=== PATIENT | male | born 1980 | race Hispanic/Latino ===

== ENCOUNTER 2018-10-18 21:22 | Emergency (ER) | payer OTHER ==
[2018-10-18 21:53] VITALS: RESP 18; TEMP 98.3
--- NOTE | 2018-10-18 22:47 | ED PDOC ---
HPI: Hypertension/Hypotension Time Seen by Provider: 10/18/18 22:45 Chief Complaint (Nursing): High Blood Pressure Chief Complaint (Provider): ELEVATED BP History Per: Patient (38 Y/O MALE HERE ANXIOUS ABOUT ELEVATED BLOOD PRESSURE NOTED ONGOING X 2 WEEKS. PATIENT HAS BEEN CHECKING BP INTERMITTENTLY. HAS HAD A LOT OF ANXIETY LATELY TO NEW JOB AND IN FAMILY.) Past Medical History Reviewed: Historical Data, Nursing Documentation, Vital Signs Vital Signs: Last Vital Signs Temp 98.3 F 10/18/18 21:47 Pulse 84 10/18/18 21:47 Resp 18 10/18/18 21:47 BP 160/99 H 10/18/18 21:47 Pulse Ox 99 10/18/18 21:47 - Medical History PMH: HTN (not medicated) - Family History Family History: States: No Known Family Hx - Allergies Allergies/Adverse Reactions: Allergies Allergy/AdvReac Type Severity Reaction Status Date / Time No Known Allergies Allergy Verified 10/18/18 21:47 Review of Systems ROS Statement: Except As Marked, All Systems Reviewed And Found Negative Physical Exam - Reviewed Nursing Documentation Reviewed: Yes Vital Signs Reviewed: Yes - Physical Exam Appears: Positive for: Well, Non-toxic, No Acute Distress Head Exam: Positive for: ATRAUMATIC, NORMAL INSPECTION, NORMOCEPHALIC Skin: Positive for: Normal Color, Warm, DRY Eye Exam: Positive for: EOMI, Normal appearance, PERRL ENT: Positive for: Normal ENT Inspection Neck: Positive for: Normal, Painless ROM Cardiovascular/Chest: Positive for: Regular Rate, Rhythm Respiratory: Positive for: CNT, Normal Breath Sounds Gastrointestinal/Abdominal: Positive for: Normal Exam, Soft Back: Positive for: Normal Inspection Extremity: Positive for: Normal ROM Neurologic/Psych: Positive for: Alert, Oriented - Laboratory Results Result Diagrams: 10/18/18 22:40 10/18/18 22:40 - ECG O2 Sat by Pulse Oximetry: 99 - Progress ED Course And Treament: XANAX 0.5 MG X 1 DOSE repeat BP 155/106 Disposition - Clinical Impression Clinical Impression: Hypertension - Patient ED Disposition Is Patient to be Admitted: No - Disposition Disposition: Routine/Home Disposition Time: 01:10 Condition: FAIR Instructions: High Blood Pressure (DC)
[2018-10-18 23:12] LABS: BASO # 0.1 K/uL (0.0-0.2); BASO % 0.6 % (0.0-2.0); EOS # 0.1 K/uL (0.0-0.7); EOS % 0.8 % (0.0-4.0); HEMOGLOBIN 16.9 g/dL (12.0-18.0); LYMPH # 3.7 K/uL (1.0-4.3); LYMPH % 35.5 % (20.0-40.0); MEAN CELL VOLUME 89.8 fl (80.0-94.0); MEAN CORPUSCULAR HEMOGLOBIN 30.7 pg (27.0-31.0); MEAN CORPUSCULAR HGB CONC 34.2 g/dL (33.0-37.0); MEAN PLATELET VOLUME 7.9 fl (7.2-11.7); MONO % 9.7 % (0.0-10.0); NEUT # 5.5 K/uL (1.8-7.0); NEUT % 53.4 % (50.0-75.0); NRBC % 0.2 % (0.0-0.0); RBC 5.49 Mil/uL (4.40-5.90); RED CELL DISTRIBUTION WIDTH 12.7 % (11.5-14.5); WHITE BLOOD COUNT 10.3 K/uL (4.8-10.8)
[2018-10-18 23:19] LABS: SQUAMOUS EPITHIAL < 1 /hpf (0-5); URINE BACTERIA RARE (<OCC); URINE BILIRUBIN NEGATIVE (NEGATIVE); URINE BLOOD NEGATIVE (NEGATIVE); URINE CLARITY CLEAR (Clear); URINE COLOR YELLOW (YELLOW); URINE GLUCOSE (UA) NEG (NEGATIVE); URINE LEUKOCYTE ESTERASE NEG Leu/uL (Negative); URINE PROTEIN NEGATIVE (NEGATIVE); URINE UROBILINOGEN 0.2-1.0 mg/dL (0.2-1.0)
[2018-10-18 23:28] LABS: ALB/GLOB RATIO 1.4 (1.0-2.1); ALBUMIN 4.4 g/dL (3.5-5.0); ALT/SGPT 65 U/L (21-72); AST/SGOT 58 U/L (17-59); BLOOD UREA NITROGEN 23 mg/dl (9-20); CALCIUM 9.5 mg/dL (8.4-10.2); GFR NON-AFRICAN AMERICAN > 60
[2018-10-18 23:31] LABS: BARBITURATES, UR NEGATIVE (NEGATIVE); BENZODIAZEPINES, UR NEGATIVE (NEGATIVE); OPIATES, UR NEGATIVE (NEGATIVE); PHENCYCLIDINE, UR NEGATIVE (NEGATIVE)
[2018-10-19 01:11] VITALS: O2SAT 99
[2018-10-19 01:19] VITALS: BP 141/109; PULSE 82
--- NOTE | 2018-10-19 08:46 | RAD ---
Date of service: 10/18/2018 HISTORY: ROUTINE COMPARISON: No prior. FINDINGS: Apical lordotic type projection. LUNGS: No active pulmonary disease. PLEURA: No significant pleural effusion identified, no pneumothorax apparent. CARDIOVASCULAR: No aortic atherosclerotic calcification present. Normal cardiac size. No pulmonary vascular congestion. OSSEOUS STRUCTURES: No significant abnormalities. VISUALIZED UPPER ABDOMEN: Normal. OTHER FINDINGS: None. IMPRESSION: No acute cardiopulmonary disease appreciated.
--- NOTE | 2018-10-19 19:47 | CARD ---
APPROVED REPORT Date of service: 10/18/2018 EKG Measurement Heart [id number] <Conclusion> Normal sinus rhythm Normal ECG
== END 2018-10-19 01:20 | disposition home or self-care (01) ==
LOC: H.ER 21:22
DX: I10 Essential (primary) hypertension (principal)